=== PATIENT | female | born 1945 | race Caucasian/White ===

== ENCOUNTER 2018-06-08 05:49 | Observation (INO) | payer OTHER ==
[2018-06-08] VITALS (55 sets, daily range): BP systolic 98–158; BP diastolic 48–123; PULSE 54–80; RESP 11–29; Ht 144.8 cm; Wt 51.3 kg
[~2018-06-08] VITALS: Ht 144.8 cm; Wt 51.3 kg
[~2018-06-08 05:49] MED LIST: ALEN35TA12 PO; ATOR10TA65 PO; CALC-445 PO; CALC1TAB48 PO; CARV6.2545 PO; CIPR100T3 PO; CITA40TA6 PO; DIGO250T PO; DOCU-144 PO; ESCI10TA PO; EZET1TAB10 PO; GEMF600T PO; ISOS60TA36 PO; LASS PO; MELO-37 PO; OMEP20CA16 PO; POTA8TAB2 PO; SITA1TAB3 PO
[2018-06-08] MEDS ORDERED: IODIXANOL LOCM 50 ML BTL ONE (06:59)
[2018-06-08] MEDS ORDERED: BUPIVACAINE 0.5% (SDV) 30 ML INJ ONE (06:59)
[2018-06-08] MEDS ORDERED: SOD CHLORIDE 0.9% 500 ML ONE (06:59)
[2018-06-08] MEDS ORDERED: LIDOCAINE 1% (MDV) 20 ML INJ ONE (06:59)
[2018-06-08] MEDS ORDERED: LACTATED RINGER'S 1,000 ML IV* ONE (07:00)
[2018-06-08] MEDS ORDERED: CEFAZOLIN 2 GM/50 ML (PMX) 50 ML IVPB ONE (07:00)
[2018-06-08] MEDS ORDERED: CEFAZOLIN 1 GM/50 ML (PMX) 100 ML IVPB ONE (07:08)
--- NOTE | 2018-06-08 07:32 | PREAC ---
Date/Time of Note Date/Time of Note DATE: 06/08/18 TIME: 07:31 Anesthesia Eval and Record Evaluation Time Pre-Procedure Interview DATE: 06/08/18 TIME: 07:31 Age 73 Sex female NPO: 8 hrs Preoperative diagnosis cardiomyopathy Planned procedure AICD Past Medical History Past Medical History: Includes Cardio: HTN, Dyslipidemia, CAD, CABG, CHF Surgery & Anesthesia Issues No known issue Meds Anticoagulation: No Beta Xander within 24 hr: No Reason Beta Xander not given: Bradycarida Reported Medications Ciprofloxacin Hcl (Ciprofloxacin Hcl) 100 Mg Tablet, 500 MG PO BID 03/30/13 Alendronate Sodium* (Alendronate Sodium*) 35 Mg Tablet, 35 MG PO WEEKLY 03/30/13 Atorvastatin Calcium (Atorvastatin Calcium) 10 Mg Tab, 40 MG PO DAILY 03/30/13 Citalopram Hydrobromide* (Citalopram Hydrobromide*) 40 Mg Tablet, 20 MG PO DAILY 03/30/13 Gemfibrozil* (Lopid*) 600 Mg Tablet, 600 MG PO DAILY 03/30/13 Digoxin* (Digitek*) 250 Mcg Tablet, 250 MCG PO DAILY 03/30/13 Omeprazole* (Omeprazole*) 20 Mg Capsule.dr, 20 MG PO DAILY 01/15/11 Calcium Carbonate/Vitamin D3 (Vitamin D-3 400 Units Tablet) 1 Tab Tablet, 1 TAB PO DAILY 01/15/11 Docusate Sodium* (Colace*) 100 Mg Capsule, 100 MG PO BID 01/15/11 Calcium Carbonate/Vitamin D3 (Oyst Gal D 500 Mg Tablet) 1 Tab Tablet, 1 TAB PO BID 01/15/11 Escitalopram Oxalate* (Lexapro*) 10 Mg Tablet, 10 MG PO DAILY 01/15/11 Ezetimibe-Simvastatin (Vytorin) 1 Tab Tablet, 1 TAB PO DAILY 01/15/11 Meloxicam (Mobic) 15 Mg Tablet, 15 MG PO DAILY 01/15/11 Potassium Chloride* (Klor-Con*) 8 Meq Tablet.sa, 8 MEQ PO DAILY 01/15/11 Isosorbide Mononitrate (Isosorbide Mononitrate) 60 Mg Tab.sr.24h, 180 MG PO DAILY 01/15/11 Furosemide* (Lasix* Liq) 8 Mg/Ml Soln, 40 MG PO DAILY 8/23/11 Carvedilol (Coreg) 6.25 Mg Tablet, 2.5 MG PO BID 01/15/11 Sitagliptin Phos-Metformin Hcl (Janumet) 1 Tab Tablet, 1 TAB PO BID 01/15/11 Current Medications Lactated Ringer's 1,000 ml @ 25 mls/hr Q24H ONCE IV* ; Start 06/08/18 at 07:00; Stop 06/09/18 at 06:59 Meds reviewed: Yes Allergies Coded Allergies: No Known Allergy (Verified , 06/08/18) Allergies Reviewed: Yes Labs/Studies Labs Reviewed: Reviewed by anesthesiologist test: Negative Studies: ECG Pre-procedure Exam Last vitals Vital Signs Date Temp Pulse Resp B/P (MAP) Pulse Ox O2 O2 Flow FiO2 Time Delivery Rate 06/08/18 96.9 65 18 112/58 96 Room Air 06:23 (76) Airway: Adequate mouth opening, Adequate thyromental dist Mallampati: Mallampati II Teeth: Normal Lung: Normal Heart: Normal ASA Physical Status ASA physical status: 3 Emergency: None Planned Anesthetic General/MAC: Mask, MAC Pre-operative Attestations Prior to commencing anesthesia and surgery, the patient was re-evaluated, there was verification of: *The patient's identity *The results of appropriate recent lab work and preoperative vital signs *The above evaluation not changing prior to induction *Anesthetic plan, risk benefits, alternative and complications discussed with patient/family; questions answered; patient/family understands, accepts and wishes to proceed. CIARRA CORONADO Jun 08, 2018 07:32
[2018-06-08] MEDS ORDERED: FENTAnyl 50 MCG/ML VIAL ONE (07:36)
[2018-06-08] MEDS ORDERED: CARV6.2579 PO (07:36)
[2018-06-08] MEDS ORDERED: PROPOFOL 20 ML ONE (07:36)
[2018-06-08] MEDS ORDERED: PROPOFOL 100 ML ONE (07:37)
[2018-06-08] MEDS ORDERED: ISOS120T15 PO (07:37)
[2018-06-08] MEDS ORDERED: CALC1TAB79 PO (07:37)
[2018-06-08] MEDS ORDERED: FURO40TA4 PO (07:38)
[2018-06-08] MEDS ORDERED: DOCU100T PO (07:38)
[2018-06-08] MEDS ORDERED: OMEP20CA16 PO (07:38)
[2018-06-08] MEDS ORDERED: POTA8TAB2 PO (07:39)
[2018-06-08] MEDS ORDERED: MELO15TA30 PO (07:39)
[2018-06-08] MEDS ORDERED: GEMF600T8 PO (07:40)
[2018-06-08] MEDS ORDERED: DIGO125T PO (07:40)
[2018-06-08] MEDS ORDERED: SITA1TAB PO (07:40)
[2018-06-08] MEDS ORDERED: CITA20TA11 PO (07:41)
[2018-06-08] MEDS ORDERED: LISI-313 PO (07:41)
[2018-06-08] MEDS ORDERED: ATOR40TA68 PO (07:41)
[2018-06-08] MEDS ORDERED: FENTAnyl 50 MCG/ML VIAL IV PRN (08:00)
[2018-06-08] MEDS ORDERED: ONDANSETRON 4 MG INJ IV PRN (08:00)
[2018-06-08] MEDS ORDERED: POLYMYXIN/BACITRACIN 1L IRRIG IRR SCH (08:00)
[2018-06-08] MEDS ORDERED: HYDROCODONE/APAP (5/325) TAB PO PRN (09:00)
--- NOTE | 2018-06-08 09:01 | SIPON ---
Date/Time of Note Date/Time of Note DATE: 06/08/18 TIME: 09:00 Operative Report Preoperative Diagnosis CMP CHF Postoperative Diagnosis CMP CHF Operation/Procedure Performed Single chamber medtronic ICD implant Surgeon see signature line mailing machine assistant none Anesthesia: MAC Estimated blood loss: minimal Transfusion Required none Specimen none Grafts/Implants none Complications none CARLOZ BANERJEE MD Jun 08, 2018 09:01
--- NOTE | 2018-06-08 09:38 | PAC ---
Date/Time of Note Date/Time of Note DATE: 06/08/18 TIME: 09:38 Post-Anesthesia Notes Post-Anesthesia Note Last documented vital signs Vital Signs Date Temp Pulse Resp B/P (MAP) Pulse Ox O2 O2 Flow FiO2 Time Delivery Rate 06/08/18 70 20 133/57 97 Room Air 09:30 (82) 06/08/18 98.3 09:07 Activity: WNL Respiratory function: WNL Cardiovascular function: WNL Mental status: Baseline Pain reasonably controlled: Yes Hydration appropriate: Yes Nausea/Vomiting absent: Yes CIARRA CORONADO Jun 08, 2018 09:38
--- NOTE | 2018-06-08 10:01 | OPR ---
DATE OF OPERATION: 06/08/2018 POSTOPERATIVE DIAGNOSIS: Cardiomyopathy, CHF. PROCEDURE PERFORMED: Implantable cardio fibrillator. DESCRIPTION OF PROCEDURE: The patient was brought to the catheterization laboratory in a fasting sta te. Informed consent was signed for procedure and sedation. The patient was sedated with the assist ance of anesthesia. The left pectoral region was prepped and draped in the usual fashion. Patient w as given antibiotics prior to skin incision. Lidocaine 1% was infused under the left clavicle. A 3 cm incision was made and using combination of blunt dissection and electrocautery, the tissue was dissected to the pectoral fascia. Venous access was obtained using the axillary approach and a wire was passed to the IVC. A 9-Malagasy peel away sheath was advanced to the subclavian vein through the sheath. A Medtronic ICD single coil lead was placed on the lower RV septum where excellent pacing and sensing characteristics were confirmed. The lead was screwed into place. Sheath was split and lead was sutured to the fasc ia using 0 silk nonresorbable sutures. The pocket was connected to the leads and sutured to the pect oral fascia. Pocket was irrigated with antibiotic solution. Pocket was closed in layers using 2-0 a nd 4-0 absorbable suture. Surgical adhesive was applied to the skin. Implant data laundry helper Medtronic, serial number [id number]. Right ventricular lead model number 6 935, serial number [id number]. Dictated By: CARLOZ DRAKE/ANUP Conf#: [id number] DID#: [id number]
[2018-06-08] MEDS ORDERED: GLUCOSE GEL 15 GRAM TUBE BUCCAL PRN (11:30)
[2018-06-08] MEDS ORDERED: DEXTROSE 50% 50 ML SYRINGE IV PRN ×2 (11:30)
[2018-06-08] MEDS ORDERED: GLUCOSE GEL 15 GRAM TUBE PO PRN ×2 (11:30)
[2018-06-08] MEDS ORDERED: GLUCAGON 1 MG INJ IM PRN (11:30)
--- NOTE | 2018-06-08 12:33 | HP ---
DATE OF ADMISSION: 06/08/2018 CHIEF COMPLAINT: Cardiomyopathy, status post ICD placement. HISTORY OF PRESENT ILLNESS: This is a 73-year-old female with a past medical history of ischemic car diomyopathy, history of diabetes, hypertension, dyslipidemia and coronary artery disease, who present ed to [facility] to undergo elective placement of the ICD. The patient has noted i schemic cardiomyopathy with ejection fraction 35%, class 2. The patient was a candidate and therefor e was brought into [facility] where she underwent placement of ICD by the cardiolog ist, Dr. Banerjee. The patient had no intraoperative complications and postoperatively is in the brandon very room. The patient denies any recent history of hemoptysis, hematemesis, hematochezia, any histo ry of lower extremity edema. PAST MEDICAL HISTORY: History of ischemic cardiomyopathy, history of CHF, history of diabetes, dysli pidemia, hypertension, coronary artery disease. PAST SURGICAL HISTORY: Status post CABG in 2008, status post PCI in 2010. FAMILY HISTORY: No family history of kidney disease. SOCIAL HISTORY: Does not drink, smoke or do drugs. MEDICATIONS: Have been reviewed and reconciled. REVIEW OF SYSTEMS: A 14-point review of systems conducted. Pertinent positives stated in HPI, other bueno negative. PHYSICAL EXAMINATION: VITAL SIGNS: Blood pressure 120/60, pulse 77, respirations 20, temperature 98.3. HEENT: Head is normocephalic. NECK: Supple. HEART: Regular rate. LUNGS: Show diminished breath sounds at base. ABDOMEN: Soft, nontender to palpation without rebound or guarding. EXTREMITIES: Negative for clubbing, cyanosis. No edema. DERMATOLOGIC: No rashes. MUSCULOSKELETAL: No joint effusions. NEUROLOGIC: No focal deficits. CHEST: The patient has dressing over her right chest wall, which is clean, dry and intact. LABORATORY DATA: Have been reviewed. DIAGNOSTIC DATA: The patient's chest x-ray shows evidence of mild congestion. ASSESSMENT AND PLAN: This is a 73-year-old female who presents with: 1. Ischemic cardiomyopathy. The patient is status post ICD placement. Plan is to observe overnight and monitor on telemetry. Continue pain control. Follow up with cardiology for further recommendat ion. 2. History of congestive heart failure . The patient is clinically stable. Chest x-ray does s how mild congestion. Continue medical management. Continue diuretic therapy. 3. History of coronary artery disease. Continue current treatment plan. 4. Diabetes. Continue current insulin regimen, Accu-Cheks, insulin sliding scale. 5. Dyslipidemia. Continue statin therapy. 6. Hypertension. Continue current blood pressure regimen. 7. Arrhythmia. Continue digoxin. 8. Gastrointestinal and deep venous thrombosis prophylaxis. Please note, I spent an additional 30 minutes of face to face time with the patient, discussing code status and advance directives. The patient is full code. Dictated By: KASEY BREWER DO NR/NTS Conf#: [id number] DID#: [id number] CC: CARLOZ BANERJEE MD;*EndCC*
[2018-06-08] MEDS: ACCU-CHEK XX SCH ×3 (13:00→21:00)
[2018-06-08] MEDS: INSULIN ASPART [NOVOLOG] 3 ML PEN SC SCH ×3 (13:00→21:00)
[2018-06-08] MEDS: CEFAZOLIN 1 GM/50 ML (PMX) 50 ML IVPB SCH ×2 (13:53→21:51)
[2018-06-08] MEDS: GEMFIBROZIL 600 MG TAB PO SCH ×2 (13:54→21:51)
[2018-06-08] MEDS: LISINOPRIL 5 MG TAB PO SCH (13:54)
[2018-06-08] MEDS: MELOXICAM 15 MG TAB PO SCH (13:55)
[2018-06-08] MEDS: DOCUSATE SODIUM 100 MG CAP PO SCH (13:55)
[2018-06-08] MEDS: POTASSIUM CHLORIDE (SR) 8 MEQ CAP PO SCH (13:56)
[2018-06-08] MEDS: DIGOXIN 0.125 MG TAB PO SCH (13:56)
[2018-06-08] MEDS: ISOSORBIDE MONONITRATE(SR)60 MG TAB PO SCH (13:57)
[2018-06-08] MEDS: CITALOPRAM 20 MG TAB PO SCH (13:57)
[2018-06-08] MEDS: FUROSEMIDE 40 MG TAB PO SCH (13:58)
[2018-06-08] MEDS ORDERED: ATORVASTATIN 40 MG TAB PO SCH (21:00)
[2018-06-09] VITALS (18 sets, daily range): BP systolic 90–132; BP diastolic 54–78; PULSE 49–86; RESP 12–24
[2018-06-09] MEDS ORDERED: ACCU-CHEK XX SCH (02:00)
[2018-06-09] MEDS: CEFAZOLIN 1 GM/50 ML (PMX) 50 ML IVPB SCH (06:10)
[2018-06-09] MEDS: ACCU-CHEK XX SCH ×2 (07:05→11:00)
[2018-06-09] MEDS: INSULIN ASPART [NOVOLOG] 3 ML PEN SC SCH ×2 (07:35→11:30)
--- NOTE | 2018-06-09 08:06 | DS ---
DATE OF ADMISSION: 06/08/2018 DATE OF DISCHARGE: 06/09/2018 HOSPITAL COURSE: This is a 73-year-old female with a past medical history of ischemic cardiomyopathy , history of diabetes, hypertension, dyslipidemia, coronary artery disease, presented to [facility] to undergo elective ICD placement. The patient was a candidate for ICD placement an d was seen by light out examiner, Dr. Banerjee. The patient yesterday underwent successful placement of ICD . Overnight on telemetry, the patient was noted to be stable, no acute events noted. The patient's pain is well controlled. Currently, at this time, the patient will be discharged home, where she nato l follow up with her primary care physician and light out examiner in 1 week's time. FINAL DIAGNOSES: 1. Ischemic cardiomyopathy, status post ICD placement. 2. Congestive heart failure, chronic, stable. 3. History of coronary artery disease. 4. Diabetes. 5. Dyslipidemia. 6. Hypertension. 7. Arrhythmia. FINAL MEDICATIONS: Please see reconciliation list. At the time of discharge, the patient is stable, in no acute distress. Please note I spent over 40 minutes of time preparing the patient's discharge. Dictated By: KASEY BREWER DO NR/NTS Conf#: [id number] DID#: [id number] CC: CARLOZ BANERJEE MD;*EndCC*
[2018-06-09] MEDS ORDERED: LINAGLIPTIN 5 MG TABLET PO SCH (09:00)
[2018-06-09] MEDS: MELOXICAM 15 MG TAB PO SCH (09:59)
[2018-06-09] MEDS: POTASSIUM CHLORIDE (SR) 8 MEQ CAP PO SCH (09:59)
[2018-06-09] MEDS: DOCUSATE SODIUM 100 MG CAP PO SCH (09:59)
[2018-06-09] MEDS: LISINOPRIL 5 MG TAB PO SCH (09:59)
[2018-06-09] MEDS: CITALOPRAM 20 MG TAB PO SCH (09:59)
[2018-06-09] MEDS: GEMFIBROZIL 600 MG TAB PO SCH (09:59)
[2018-06-09] MEDS: FUROSEMIDE 40 MG TAB PO SCH (10:00)
[2018-06-09] MEDS: ISOSORBIDE MONONITRATE(SR)60 MG TAB PO SCH (10:00)
--- NOTE | 2018-06-09 13:10 | PN ---
Date/Time of Note Date/Time of Note DATE: 06/09/18 TIME: 13:08 Assessment/Plan VTE Prophylaxis [place] [facility]: 6 SCD applied [place] [facility] Yes SCD contraindicated: low risk/ambulating Pharmacological prophylaxis: other Pharm contraindication: surgical contra Lines/Catheters IV C[facility]ter Type [facility] Peripheral IV Assessment/Plan Hospital Course doing well post ICD no bleeding no ptx OK to discharge on all home medication Result Diagram: 06/09/1842706/09/18427 Results 24hrs Laboratory Tests Test 06/08/18 13:11 06/08/18 17:00 06/08/18 21:54 06/09/18 02:38 Bedside Glucose 93 117 117 114 Test 06/09/18 04:28 06/09/18 07:46 06/09/18 12:03 White Blood Count 4.6 L Red Blood Count 3.68 L Hemoglobin 10.0 L Hematocrit 32.2 L Mean Corpuscular 87.5 Volume Mean Corpuscular 27.2 L Hemoglobin Mean Corpuscular 31.1 L Hemoglobin Concent Red Cell 13.9 Distribution Width Platelet Count 266 Mean Platelet Volume 9.4 Immature 2.400 H Granulocytes % Neutrophils % 62.1 Lymphocytes % 21.4 Monocytes % 11.3 H Eosinophils % 2.4 Basophils % 0.4 Nucleated Red Blood 0.0 Cells % Immature 0.110 H Granulocytes # Neutrophils # 2.9 Lymphocytes # 1.0 Monocytes # 0.5 Eosinophils # 0.1 Basophils # 0.0 Nucleated Red Blood 0.0 Cells # Sodium Level 141 Potassium Level 4.2 Chloride Level 109 Carbon Dioxide Level 28 Anion Gap 4 L Blood Urea Nitrogen 14 Creatinine 0.64 Est Glomerular Filtrat Rate mL/min Glucose Level 115 Calcium Level 8.8 Phosphorus Level 3.2 Magnesium Level 2.2 Bedside Glucose 132 102 Subjective 24 Hr Interval Summary Free Text/Dictation feels well post ICD Constitutional: no complaints Exam/Review of Systems Vital Signs Vitals Vital Signs Date Temp Pulse Resp B/P (MAP) Pulse Ox O2 O2 Flow FiO2 Time Delivery Rate 06/09/18 103/61 12:48 (75) 06/09/18 67 19 96 12:35 06/09/18 98.1 12:00 06/09/18 Room Air 06:00 Intake and Output 1/06/08/18 06/09/18 1515:00 23:00 07:00 IntakeIntake Total 585 ml 775 ml 175 ml OutputOutput Total 400 ml 600 ml 800 ml BalanceBalance 185 ml 175 ml -625 ml Exam IC D incision C/D/I Constitutional: alert, oriented Medications Medications Current Medications Atorvastatin Calcium (Lipitor) 40 mg QHS PO Last administered on 06/08/18 21:51; Admin Dose 40 MG; Start 06/08/18 at 21:00 Carvedilol (Coreg) 6.25 mg BID PO Last administered on 06/09/18 10:00; Admin Dose 6.25 MG; Start 06/08/18 at 10:00 Citalopram Hydrobromide (Celexa) 20 mg DAILY PO Last administered on 06/09/18 09:59; Admin Dose 20 MG; Start 06/08/18 at 09:00 Digoxin (Digoxin) 0.125 mg DAILY@1300 PO Last administered on 06/08/18 13:56; Admin Dose 0.125 MG; Start 06/08/18 at 13:00 Docusate Sodium (Colace) 100 mg DAILY PO Last administered on 06/09/18 09:59; Admin Dose 100 MG; Start 06/08/18 at 09:00 Furosemide (Lasix) 40 mg DAILY PO Last administered on 06/09/18 10:00; Admin Dose 40 MG; Start 06/08/18 at 09:00 Gemfibrozil (Lopid) 600 mg BID PO Last administered on 06/09/18 09:59; Admin Dose 600 MG; Start 06/08/18 at 09:00 Isosorbide Mononitrate (Imdur) 120 mg DAILY PO Last administered on 06/09/18 10:00; Admin Dose 120 MG; Start 06/08/18 at 09:00 Lisinopril (Zestril) 5 mg DAILY PO Last administered on 06/09/18 09:59; Admin Dose 5 MG; Start 06/08/18 at 09:00 Meloxicam (Mobic) 15 mg DAILY PO Last administered on 06/09/18 09:59; Admin Dose 15 MG; Start 06/08/18 at 09:00 Potassium Chloride (Micro-K) 8 meq DAILY PO Last administered on 1/15/19at 09:59; Admin Dose 8 MEQ; Start 06/08/18 at 09:00 Acetaminophen/ Hydrocodone Bitart ([place] (5/325)) 2 tab Q6H PRN PO MODERATE PAIN LEVEL 4-6; Start 06/08/18 at 09:00 Miscellaneous Information (* Miscellaneous Pharmacy Order) HOLD all METFORMIN ... ONCE XX Last administered on 06/09/18at 08:08; Admin Dose 1 EA; Start 06/08/18 at 09:00; Stop 06/10/18 at 08:59 Linagliptin (Tradjenta) 5 mg DAILY PO Last administered on 06/09/18at 09:59; Admin Dose 5 MG; Start 06/09/18 at 09:00 Diagnostic Test (Pha) (Accu-Chek) 1 ea AC MEALS AND BEDTIME XX Last adm inistered on 06/09/18at 07:05; Admin Dose 1 EA; Start 06/08/18 at 11:27 Diagnostic Test (Pha) (Accu-Chek) 1 ea 02 XX Last administered on 06/09/18at 02:00; Admin Dose 1 EA; Start 06/09/18 at 02:00 Insulin Aspart (Novolog Insulin Pen) NOVOLOG *MILD* ALGORITHM WITH MEALS BEDTIME SC ; Start 06/08/18 at 11:30 Miscellaneous Information 1 ea NOTE XX ; Start 06/08/18 at 11:30 Glucose (Glutose) 15 gm Q15M PRN PO DECREASED GLUCOSE; Start 06/08/18 at 11:30 Glucose (Glutose) 22.5 gm Q15M PRN PO DECREASED GLUCOSE; Start 06/08/18 at 11:30 Dextrose (D50w Syringe) 25 ml Q15M PRN IV DECREASED GLUCOSE; Start 06/08/18 at 11:30 Dextrose (D50w Syringe) 50 ml Q15M PRN IV DECREASED GLUCOSE; Start 06/08/18 at 11:30 Glucagon (Glucagen) 1 mg Q15M PRN IM DECREASED GLUCOSE; Start 06/08/18 at 11:30 Glucose (Glutose) 15 gm Q15M PRN BUCCAL DECREASED GLUCOSE; Start 06/08/18 at 11:30 CARLOZ BANERJEE MD Jun 09, 2018 13:10
[2018-06-09] MEDS: DIGOXIN 0.125 MG TAB PO SCH (13:31)
== END 2018-06-09 14:00 | disposition home or self-care (01) ==
LOC: SDS 05:49 → CCL 05:49 → REC 08:50 → INTOOBSV 08:50 → ICU 11:27
PROVIDERS: ADMIT Internal Medicine Cardiovascular Disease; ATTEND Internal Medicine Cardiovascular Disease
DX: I11.0 Hypertensive heart disease with heart failure (principal); I50.9 Heart failure, unspecified; I25.5 Ischemic cardiomyopathy; I25.10 Atherosclerotic heart disease of native coronary artery without angina pectoris; E11.9 Type 2 diabetes mellitus without complications; E78.5 Hyperlipidemia, unspecified
CPT/HCPCS: 33249; 71045; 80048; 82962; 83735; 84100; 85025; 87081; C1777; C1882; J0690; J3010; J7040; Q9967; Z7500; Z7610; G0378; J1815